=== PATIENT | male | born 1955 | race Hispanic/Latino ===

== ENCOUNTER → 2020-04-09 | Day surgery (SDC) | payer MEDICARE ==
[2020-04-06 11:20] LABS: BASOPHILS # (AUTO) 0.1 (0.0-0.1); BASOPHILS % 0.7 % (0.0-1.0); EOSINOPHILS # (AUTO) 0.1 (0.0-0.4); EOSINOPHILS % 1.4 % (0.0-6.0); HEMATOCRIT 40.8 % (38.2-49.6); HEMOGLOBIN 13.3 g/dL (14.0-18.0); LYMPHOCYTES # (AUTO) 1.4 (1.0-3.2); LYMPHOCYTES % 20.3 % (18.0-39.1); MEAN CORPUSCULAR HEMOGLOBIN 30.6 pg (28-32); MEAN CORPUSCULAR HGB CONC 32.6 g/dL (31-35); MONOCYTES # (AUTO) 0.6 (0.2-0.8); MONOCYTES % 8.1 % (4.4-11.3); NEUTROPHILS # (AUTO) 4.9 (2.1-6.9); NEUTROPHILS % 69.2 % (38.7-80.0); PLATELET COUNT 240 x10e3/uL (140-360); RED BLOOD COUNT 4.34 x10e6/uL (4.3-5.7)
[2020-04-06 11:37] LABS: ANION GAP 12.5 mmol/L (8-16); BLOOD UREA NITROGEN 19 mg/dL (7-26); BUN/CREATININE RATIO 19 (6-25); CALCIUM 8.8 mg/dL (8.4-10.2); CARBON DIOXIDE 26 mmol/L (22-29); CHLORIDE 104 mmol/L (98-107); CREATININE, SERUM 0.99 mg/dL (0.72-1.25); EST GLOMERULAR FILTRATION RATE > 60 ML/MIN (60-); GLUCOSE 106 mg/dL (74-118); POTASSIUM 4.5 mmol/L (3.5-5.1); SODIUM 138 mmol/L (136-145)
--- NOTE | 2020-04-06 11:57 | Diagnostic Imaging Report ---
X-ray chest PA and lateral History: Preop Comparison: 03/27/2017 Findings: Central airways: Unremarkable Cardiac silhouette: Unremarkable Mediastinal silhouettes: Unremarkable Pleura: No pleural effusion, pneumothorax or thickening Diaphragms: Unremarkable Lungs: No focal lung disease Skeletal structures: Left shoulder orthopedic hardware noted. Extrathoracic soft tissues: Surgical jose in the upper abdomen. Impression: No acute cardiopulmonary disease on this exam Signed by: Wilbert Longoria MD on 04/06/2020 11:54 AM
[~2020-04-09] VITALS: Ht 170.2 cm; Wt 104.3 kg
[~2020-04-09] MED LIST: ADVAIR 250-501 EACH IH; AMITIZA24 MCG PO; BENICAR20 MG PO; BUPIVACAINE HCL 0.5% INJ 30 ML VIAL INJ ONE; CEFAZOLIN SOD 1 GM VIAL ONE; CELEBREX100 MG PO; CYMBALTA30 MG PO; DEXAMETHASONE SOD PHOS INJ 4 MG/ML VIAL ONE; DICLO GEL1 EACH; ETODOLAC300 MG PO; FENTANYL CITRATE/PF 100MCG/2 ML INJ ONE; FINASTERIDE5 MG PO; FLOMAX0.4 MG PO; GABAPENTIN400 MG PO; HYDROCHLOROTHIA25 MG; HYDROMORPHONE 1MG/1ML INJ ONE; KETOROLAC TROMETHAMINE 30 MG/ML VIAL ONE; LIDOCAINE HCL 2% LOCAL INJ 5 ML SDV VIAL INJ ONE; LISINOPRIL-HCT1 EACH PO; METOPROLOL SUCC50 MG PO; MIDAZOLAM HCL 2 MG/2 ML VIAL ONE; NEOSTIGMINE 1 MG/ML 10ML VIAL ONE; NORCO 10-325 T1 EACH PO; ONDANSETRON HCL INJ 2MG/ML 2ML 2 MG/ML VIAL ONE; PROAIR RESPICL90 MCG; PROPOFOL IV EMULSION 10 MG/ML 20 ML VIAL ONE; SEROQUEL25 MG PO; SEVOFLURANE INHAL SOLN 250 ML PEN BTL ONE; TIZANIDINE HCL4 MG PO
[2020-04-09 10:42] VITALS: BP 165/55
--- NOTE | 2020-04-27 19:02 | Operative Report ---
DATE OF PROCEDURE: 04/09/2020 SURGEON: Alexey Solomon DPM ROOM NUMBER: [facility]. PREOPERATIVE DIAGNOSES: 1. Contracted Achilles, left foot. 2. Ruptured peroneal tendon, left foot. 3. Calcaneal varus, left foot. ANESTHESIA: General endotracheal. HEMOSTASIS: Left thigh tourniquet at 350 mmHg. PROCEDURES: 1. Gastrocnemius recession, left foot. 2. Peroneal tendon repair, left foot. 3. Calcaneal slide osteotomy with screw fixation, left foot. PROCEDURE IN DETAIL: The patient was taken to the operating room in a mildly sedated state and placed on the operating table in the supine position. Mild rotation lateral toney was performed of the patient to present the lateral aspect of the heel. Utilizing axial and lateral radiographs and fluoroscopy, the bony architecture was mapped and a lateral incision was placed overlying the calcaneus, exposing the calcaneal lateral aspect for osteotomy. Utilizing an oscillating saw and marking, a wedge approximately 1.5 cm in width and narrowing down to the medial wall was performed. This wedge was resected utilizing an oscillating saw and osteotome. Once the wedge was resected, we were able to close the gapping laterally, irrigate the wound completely and utilized a K-wire for pinning. A second K-wire for pinning. The initial K-wire was in perfect position for our MUC screw, which was a 5.0 x 60 mm Fixos screw from [employer]. This was inserted and compressed. The second point of fixation was achieved via osteosynthesis compression staple. This having been accomplished, the area was irrigated with copious amounts of sterile saline solution and closed with 3-0 Vicryl, 4-0 nylon. Attention was then directed to the peroneal tendon, which was noted to be ruptured. Incision was placed on the lateral aspect of the foot. Peroneal tendon segment was resected from the rupture and repaired with #2 FiberWire that was closed over with 3-0 Vicryl and 4-0 nylon as well. Gastrocnemius recession was performed at the posterior aspect of the left foot and that was via transverse Kyle procedure with a 2 cm linear incision. Irrigated with copious amounts of sterile saline solution. The AlloWrap had been applied to the outside of the peroneal tendon sheath. All areas were blocked with 0.5 Marcaine and closed with the appropriate suture and the patient was placed in a posterior splint. Release of the pneumatic thigh tourniquet showed a normal hyperemic flush to all digits of the left foot. The patient left the operating room, vital signs stable in apparent satisfactory condition, having tolerated both anesthetic and procedure very well. ANNI Henson/JONA /[id number]
== END | disposition home or self-care (01) ==
LOC: OR 05:17
PROVIDERS: ATTEND Podiatrist Foot Surgery
DX: M24.575 Contracture, left foot (principal); S96.812A Strain of other specified muscles and tendons at ankle and foot level, left foot, initial encounter; M21.172 Varus deformity, not elsewhere classified, left ankle; J45.909 Unspecified asthma, uncomplicated; I10 Essential (primary) hypertension; X58.XXXA Exposure to other specified factors, initial encounter; Z88.6 Allergy status to analgesic agent; Z01.810 Encounter for preprocedural cardiovascular examination; Z01.812 Encounter for preprocedural laboratory examination; Z01.818 Encounter for other preprocedural examination; Z20.828 Contact with and (suspected) exposure to other viral communicable diseases
CPT/HCPCS: 27687; 28200; 28300; 36415; 71046; 76000; 80048; 85025; 93005; C1713 ×2; J0690; J1100; J1170; J1885; J2001; J2250; J2405; J2704; J2710; J3010; Q4150; U0002